=== PATIENT | female | born 1960 | race African-American/Black ===

== ENCOUNTER 2023-10-01 05:54 | Day surgery (SDC) | payer OTHER ==
[2023-09-18 16:53] VITALS: BMI 33.5
[2023-10-01] MEDS ORDERED: ONDANSETRON 4 MG/2 ML VIAL IVPUSH PRN (06:57)
[2023-10-01] MEDS ORDERED: LACTATED RINGERS SOLUTION 1,000 ML IV SCH (07:00)
[2023-10-01] MEDS ORDERED: PROPOFOL 20 ML ONE ×2 (07:11→08:13)
[2023-10-01] MEDS ORDERED: MIDAZOLAM HCL 2 MG/2 ML SINGLE DOSE VIAL ONE (07:12)
[2023-10-01] MEDS ORDERED: ROPIVACAINE HCL/PF 100 MG/20 ML VIAL ONE (07:15)
[2023-10-01] MEDS ORDERED: DEXAMETHASONE SOD PHOSPHATE 10 MG/1 ML VIAL ONE (07:15)
[2023-10-01] MEDS ORDERED: ceFAZolin SODIUM 1 GM VIAL ONE (07:51)
[2023-10-01] MEDS ORDERED: ONDANSETRON 4 MG/2 ML VIAL ONE (07:51)
[2023-10-01] MEDS ORDERED: BUPIVACAINE HCL/EPINEPHRINE/PF 30 ML VIAL IJ ONE (07:56)
[2023-10-01] MEDS ORDERED: ACETAMINOPHEN INJECTION 100 ML IVPB ONE (09:38)
[2023-10-01] MEDS: ACETAMINOPHEN 1000 MG/100 ML BAG IVPB ONE (09:40)
[2023-10-01] MEDS: oxyCODONE HCL 5 MG TABLET PO PRN (09:50)
[2023-10-01] MEDS ORDERED: oxyCODONE HCL 5 MG TABLET ONE (09:59)
[2023-10-01 10:15] VITALS: BP 145/95; PULSE 72; TEMP 97.1
[2023-10-01 10:50] VITALS: RESP 20
== END 2023-10-01 11:50 | disposition home or self-care (01) ==
LOC: FASU 05:54
PROVIDERS: ATTEND Orthopaedic Surgery
PROC: 0PBB4ZZ Excision of Left Clavicle, Percutaneous Endoscopic Approach (ICD-10-PCS; principal; 2023-10-01 08:10)
PROC: 0LS44ZZ Reposition Left Upper Arm Tendon, Percutaneous Endoscopic Approach (ICD-10-PCS; 2023-10-01 08:10)
PROC: 0RBK4ZZ Excision of Left Shoulder Joint, Percutaneous Endoscopic Approach (ICD-10-PCS; 2023-10-01 08:10)
DX: S46.012D Strain of muscle(s) and tendon(s) of the rotator cuff of left shoulder, subsequent encounter (principal); M75.22 Bicipital tendinitis, left shoulder; M75.52 Bursitis of left shoulder; M65.822 Other synovitis and tenosynovitis, left upper arm; S43.432D Superior glenoid labrum lesion of left shoulder, subsequent encounter; M19.012 Primary osteoarthritis, left shoulder; M75.02 Adhesive capsulitis of left shoulder; M94.212 Chondromalacia, left shoulder
CPT/HCPCS: 82962; 88304-TC; 94760; C1713; J0131; J1100